=== PATIENT | male | born 1950 | race Caucasian/White ===

== ENCOUNTER → 2024-03-16 12:37 | Outpatient (BNVA) | payer OTHER, SELFPAY | PROVIDERS: PCP Nurse Practitioner Family; Visit Provider Internal Medicine | DX: R07.9 Chest pain, unspecified (principal); R06.02 Shortness of breath; R55 Syncope and collapse | CPT/HCPCS: 93005; 99204 ==

== ENCOUNTER 2024-04-19 12:20 | Outpatient (CLI) | payer OTHER, SELFPAY ==
--- NOTE | 2024-04-19 12:22 | USCV_ITS ---
Buster Rogers Age: 73 Gender: M : 1950 Exam Date: 04/19/2024 12:54 Ordering Phys: Heri Elizalde M.D ([email or web address]) Technologist: CT Exam Location: [facility] [place] Indication: BP: 122 / 74 HR: 68 Rhythm: Sinus Technical Quality: Adequate MEASUREMENTS (Male / Female) Normal Values 2D ECHO LVOT Diameter 2.3 cm LV Ejection Fraction MOD 4C 55.6 % LV Ejection Fraction MOD 2C 58.6 % LV Ejection Fraction 2C AL 58.4 % LA Diameter 3.1 cm RA Systolic Volume 4C AL 32.5 ml RA Systolic Volume 4C MOD 31.4 ml LA Sys Volume AL 46.1 cm cubed LA Sys Volume Index AL 22.8 cm cubed/m squared Aorta at Sinotubular Diameter 3.8 cm M-MODE LA Ao Ratio MM 1.0 AV Cusp Separation MM 2.3 cm DOPPLER AV Peak Velocity 104.0 cm/s LVOT Peak Velocity 79.0 cm/s AV Area Cont Eq vti 4.2 cm squared AV Area Cont Eq pk 3.2 cm squared MV Peak Velocity 74.0 cm/s MV Area PHT 1.8 cm squared Mitral E to A Ratio 0.6 TV Peak Velocity 253.0 cm/s TR Peak Velocity 269.0 cm/s TR Peak Gradient 28.9 mmHg TV Peak E Velocity 94.0 cm/s PV Peak Velocity 77.5 cm/s FINDINGS Left Ventricle Left ventricle is normal in size. LV systolic function is normal with EF of 55-60%. No regional wall motion abnormalities. Right Ventricle Normal in size and function Right Atrium Normal in size Left Atrium Normal in size Mitral Valve Structurally normal mitral valve. Mild mitral regurgitation Aortic Valve Structurally normal aortic valve. Mild aortic regurgitation. No significant stenosis. Tricuspid Valve Mild tricuspid regurgitation. 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 Heri Elizalde MD (Electronically Signed) Final Date: 29 April 2024 21:46 S
== END 2024-04-19 12:21 | disposition home or self-care (01) ==
LOC: RAD 12:21
PROVIDERS: PCP Nurse Practitioner Family; Visit Provider Internal Medicine
DX: R06.02 Shortness of breath (principal); I34.0 Nonrheumatic mitral (valve) insufficiency; I35.1 Nonrheumatic aortic (valve) insufficiency; I07.1 Rheumatic tricuspid insufficiency; I37.1 Nonrheumatic pulmonary valve insufficiency; I71.21 Aneurysm of the ascending aorta, without rupture
CPT/HCPCS: 93306

== ENCOUNTER → 2024-04-27 14:08 | Outpatient (BNVA) | payer OTHER, SELFPAY | PROVIDERS: PCP Nurse Practitioner Family; Visit Provider Internal Medicine | DX: R55 Syncope and collapse (principal) | CPT/HCPCS: 99214 ==

== ENCOUNTER → 2025-01-25 13:35 | Outpatient (BNVA) | payer OTHER, SELFPAY | PROVIDERS: PCP Nurse Practitioner Family; Visit Provider Internal Medicine | DX: R55 Syncope and collapse (principal) | CPT/HCPCS: 99213 ==